=== PATIENT | female | born 1965 | race African-American/Black ===

== ENCOUNTER → 2017-01-29 | Outpatient (CLI) | payer OTHER ==
[~2017-01-29] MED LIST: ASPIRIN EC81 M1 PO; HUMALOG MI100 UNIT/1 SQ; LANTUS SOLOSTAR3 ML SQ; LISINOPRIL-HCTZ1 T19 PO; TRAMADOL HCL50 M2 PO; TRANSDERM-1 PATCH .7 TOP
--- NOTE | ~2017-01-29 | BD1 ---
[facility] A Service of [facility] & [facility] RADIOLOGY TEXT RESULTS PATIENT: ARUNA CHUN LOCATION: [facility] : 61 UNIT #: [id number] AGE: [address]: Nicholas Parker MD SEX: F ORDER DR: [id number] [facility] [address] [place], [place] [address] [id number] O MR#: [id number] Acc #: [id number] NAME: ARUNA CHUN : 1965 SEX: F STUDY DATE/TIME: 01/29/2017 16:11 UNIT: [facility] ROOM: STUDY DESCRIPTION: BD Dexa Bone Dens 1+ Site Attending Physician: Amanda Parker M.D. Referring Physician: Amanda Parker M.D. Ordering Physician: Amanda Parker M.D. Primary Care Physician: Shreya Marin M.D. MEDICAL IMAGING REPORT This report is preliminary unless electronic signature is present EXAM DXA scan 01/29/2017 HISTORY Status post menopause with no hormone replacement therapy. Osteopenia. Hysterectomy 1998. Uterine carcinoma. Family history of breast carcinoma in mother. Hypertension with blood pressure medication for 7 years. FINDINGS Bone mineral density in the lumbar spine from L1-L4 was 1.227 g/cm2 which is 1.6 standard deviations above the mean when compared to the young adult reference population which is within the range of normal. This is 1.8 standard deviations above the mean when compared to the age-matched population. Bone mineral density in the left femoral neck was 0.807 g/cm2 which is 0.4 standard deviations below the mean when compared to the young adult reference population which is within the range of normal. This is 0.3 standard deviations below the mean when compared to the age-matched population. IMPRESSION Bone mineral density in the lumbar spine and left hip within the range of normal. Dictated by... Da Ramirez M.D. THIS IS AN ELECTRONICALLY VERIFIED REPORT aD Ramirez M.D. at 01/30/2017 8:06 AM DASIA/iqra TD: 01/29/2017 18:54 JOB #: [id number] [facility] A Service of [facility] & [facility] RADIOLOGY TEXT RESULTS PATIENT: ARUNA CHUN [id number] : 61 UNIT #: [id number] AGE: [address]: Nicholas Parker MD SEX: F ORDER DR: MEDICAL IMAGING REPORT Page 1 of 1 COPY
== END | disposition home or self-care (01) ==
LOC: CWCC 15:48
DX: M81.0 Age-related osteoporosis without current pathological fracture (principal)
CPT/HCPCS: 77080